=== PATIENT | male | born 1945 | race Caucasian/White ===

== ENCOUNTER → 2017-06-27 | Outpatient (CLI) | payer MEDICARE ==
[~2017-06-27] MED LIST: ASPIRIN81 MG PO; ATORVASTATIN CA10 MG PO; CITALOPRAM HBR40 MG PO; FUROSEMIDE40 MG PO; GLIMEPIRIDE2 MG PO; HCTZ PO; INVOKANA100 MG PO; JANUVIA PO; LOPRESSOR PO; METFORMIN PO; MULTI VITAMIN1 EACH PO; PIOGLITAZONE30 MG PO
--- NOTE | ~2017-06-27 | US77 ---
[facility] A Service of [facility] & [facility] / [facility] RADIOLOGY TEXT RESULTS PATIENT: HERI ABBASI LOCATION: [facility] : 47 UNIT #: [id number] AGE: [address]: Ren Andrade MD SEX: M ORDER DR: [id number] [facility] [address] [place], [place] [address] [id number] O MR#: [id number] Acc #: [id number] NAME: HERI ABBASI : 1945 SEX: M STUDY DATE/TIME: 06/27/2017 13:22 UNIT: [facility] ROOM: STUDY DESCRIPTION: US Kidney Bilateral Complete Attending Physician: Ren Andrade M.D. Referring Physician: Ren Andrade M.D. Ordering Physician: Ren Andrade M.D. Primary Care Physician: Ren Andrade M.D. MEDICAL IMAGING REPORT This report is preliminary unless electronic signature is present EXAM Renal ultrasound 06/27/2017 HISTORY Worsening kidney function between doctor's appointments in February 2017 and May 2017. Abnormal renal function tests in May 2017 elevated BUN of 38, elevated creatinine of 1.5. Abnormally low GFR of 46. Diabetes, hypertension and hyperlipidemia. FINDINGS The right kidney measured 11.3 cm while the left kidney measured 12.5 cm in longitudinal dimensions. There is no evidence of hydronephrosis or nephrolithiasis. No cystic or solid mass lesions were seen on either kidney and there is normal renal cortical echogenicity. Images of the bladder are normal. IMPRESSION 1. Negative renal ultrasound. 2. Images of the bladder are normal. Dictated by... Cesar Pritchett M.D. THIS IS AN ELECTRONICALLY VERIFIED REPORT Cesar Pritchett M.D. at 06/28/2017 7:35 AM NAYELI/lm TD: 06/27/2017 15:57 JOB #: [id number] MEDICAL IMAGING REPORT Page 1 of 1 COPY
== END | disposition home or self-care (01) ==
LOC: CGUS 13:01
DX: N28.9 Disorder of kidney and ureter, unspecified (principal)
CPT/HCPCS: 76770

== ENCOUNTER → 2017-06-30 | Outpatient (CLI) | payer MEDICARE ==
--- NOTE | ~2017-06-30 | HM ---
Unit #: [id number] #: [id number] Patient: HERI ABBASI [id number] [address] [address] [id number] O MR#: [id number] NAME: HERI ABBASI. : 1945 SEX: M STUDY DATE/TIME: 06/30/2017 UNIT: CE ROOM: STUDY DESCRIPTION: Holter Monitor Attending Physician: Ren Andrade M.D. Referring Physician: Ren Andrade M.D. Primary Care Physician: Ren Andrade M.D. CARDIOLOGY REPORT EXAM 24 Hour Holter Monitor DATE APPLIED 06/30/2017 DATE SCANNED 07/06/[address] Andrade READ BY Nina Morris M.D. INDICATION Syncope FINDINGS Underlying rhythm is sinus rhythm with an average heart rate of 70 beats per minute, minimum heart rate of 30 beats per minute, and a maximum heart rate of 148 beats per minute. The minimum heart rate of 30 beats per minute is noted at 4:19 p.m. The maximum heart rate of 148 beats per minute is noted at 1:09 p.m. The patient had a 5.8 second pause noted at 1 p.m. The patient had 1270 single premature ventricular complex, 56 ventricular couplets noted. Patient had a three beat run of wide complex rhythm with a heart rate of 158 beats per minute. The patient had 6787 single premature atrial complex, 887 atrial couplets noted. Patient had 3 to 8 beat run of SVT with a heart rate ranging from 100 to 200 beats per minute. Patient recorded several symptoms of lightheadedness though the times did not closely correlate with the symptoms of lightheadedness. He did have significant pauses of over 3.0 second pause after his recorded time. CONCLUSION 1. Underlying rhythm is sinus rhythm with an average heart rate of 70 beats per minute, minimum heart rate of 30 beats per minute and a maximum heart of 148 beats per minute. 2. Patient had an extremely significant pause of 5.8 seconds. 3. Patient had several seconds over 3.0 seconds which correlated with symptoms of dizziness. 4. Patient had frequent single multifocal premature ventricular complexes noted. Unit #: [id number] #: [id number] Patient: HERI ABBASI 5. Patient had extremely frequent single premature atrial complex and atrial couplets noted. 6. Patient had 3 to 8 beat run of paroxysmal supraventricular tachycardia with heart rate ranging from 100 to 200 beats per minute. 7. Extremely abnormal 24 hour Holter monitor with significant tachybrady and with pauses of 5.8 seconds. 8. The patient will be hospitalized for pacemaker implantation. Dictated by... Merna Harding TD: 07/07/2017 06:26 JOB #: [id number] CARDIOLOGY REPORT Page 1 of 1 X Nina Morris MD <ELECTRONICALLY SIGNED> 08/17/17 1524 HOLTER MONITOR REPORT
== END | disposition home or self-care (01) ==
LOC: CEKG 10:30
DX: R55 Syncope and collapse (principal); I49.3 Ventricular premature depolarization; I49.1 Atrial premature depolarization; I47.1 Supraventricular tachycardia; Z95.0 Presence of cardiac pacemaker
CPT/HCPCS: 93225; 93226